=== PATIENT | female | born 1985 | race Caucasian/White ===

== ENCOUNTER 2020-12-21 02:39 | Emergency (ER) | payer MEDICAID ==
[2020-12-21] MEDS ORDERED: Boostrix 0.5 ML (Tdap) VIAL ONE (03:11)
[2020-12-21] MEDS ORDERED: Morphine 4 MG/ML VIAL ONE (03:11)
[2020-12-21] MEDS ORDERED: Ondansetron PF 4 MG/2 ML Vial ONE (03:11)
[2020-12-21] MEDS ORDERED: Clindamycin/D5W 600 mg/50 ml Premix Bag ONE (04:09)
[2020-12-21] MEDS ORDERED: Ibuprofen 800 MG TAB ONE (04:15)
[2020-12-21] MEDS ORDERED: Lidocaine 1% (PF) 30 ML VIAL ONE (04:22)
[2020-12-21] MEDS ORDERED: Triple Antibiotic Oint 1 GM Packet ONE (05:06)
--- NOTE | 2020-12-21 10:47 | RAD ---
RIGHT ELBOW 4 VIEWS: HISTORY: Elbow injury. FINDINGS: There are no signs of fracture, dislocation, or joint effusion. IMPRESSION: Negative right elbow. POS: OFF
--- NOTE | 2020-12-21 10:48 | RAD ---
RIGHT HAND 3 VIEWS: HISTORY: Hand injury. FINDINGS: There are no signs of fracture or dislocation. There are some radiopaque foreign bodies which are pr obably on the skin surface related to an area of laceration adjacent to the 5th metacarpal. IMPRESSION: No fracture. Findings as noted above. POS: OFF
== END 2020-12-21 08:30 | disposition home or self-care (01) ==
LOC: ERS 02:39
DX: S66.322A Laceration of extensor muscle, fascia and tendon of right middle finger at wrist and hand level, initial encounter (principal); S50.01XA Contusion of right elbow, initial encounter; Y04.0XXA Assault by unarmed brawl or fight, initial encounter
CPT/HCPCS: 12002; 90471; 90715; 96365; 96375; J2001; J2270; J2405; J3490

== ENCOUNTER 2020-12-26 12:26 | Day surgery (SDC) | payer SELFPAY ==
[2020-12-25 13:31] VITALS: BMI 23.1
[~2020-12-26 12:26] MED LIST: Dexamethasone 20 MG/5 ML VIAL ONE; Ketorolac Tromethamine 30 MG/ML VIAL ONE; Lidocaine 1% PF 5 ML VIAL ONE; Metoclopramide HCl 10 MG/2 ML VIAL ONE; Ondansetron PF 4 MG/2 ML Vial ONE; PHENYLEPHRINE-NS 100 MCG/ML 10 ML SYRINGE ONE; PROPOFOL 200 MG/20 ML VIAL ONE; ePHEDrine 50 MG/ML VIAL ONE
[2020-12-26 13:50] LABS: SARS-CoV-2 NAA Rapid Test Not Detected (NotDetected)
[2020-12-26] MEDS ORDERED: Midazolam HCl 2 mg/2 ml Vial ONE (14:00)
[2020-12-26] MEDS ORDERED: Scopolamine 1.5 mg/72 hour Patch ONE ×2 (14:00→14:07)
[2020-12-26] MEDS ORDERED: Clindamycin/D5W 900 mg/50 ml Premix Bag ONE (14:05)
[2020-12-26 14:29] LABS: BHCG - Serum Negative (NEGATIVE); Pregs Control Background? CLEAR/WHITE (CLR/WHITE); Pregs Control Bar Appear? YES (CONTROL BAR)
[2020-12-26] MEDS ORDERED: Famotidine/PF 20 mg/2ml Vial ONE (14:35)
[2020-12-26] MEDS ORDERED: Fentanyl 100 MCG/2 ML VIAL ONE (14:35)
[2020-12-26] MEDS ORDERED: Meperidine HCl/PF 25 MG/ML VIAL ONE (14:35)
[2020-12-26] MEDS ORDERED: Lidocaine 1% w/Epinephrine 1:100K 20 ML VIAL ONE (14:38)
[2020-12-26] MEDS ORDERED: Bupivacaine 0.25% HCL 30 ML VIAL ONE (14:38)
[2020-12-26] MEDS ORDERED: Ondansetron PF 4 MG/2 ML Vial ONE (16:12)
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
[2020-12-26] MEDS ORDERED: HYDROcodone/Acetaminophen 5/325 mg Tablet ONE ×2 (16:58→17:21)
== END 2020-12-26 17:55 | disposition home or self-care (01) ==
LOC: SDC 12:26
PROVIDERS: ATTEND Surgery Surgery of the Hand
PROC: 0LQ70ZZ Repair Right Hand Tendon, Open Approach (ICD-10-PCS; principal; 2020-12-26)
DX: S66.322A Laceration of extensor muscle, fascia and tendon of right middle finger at wrist and hand level, initial encounter (principal); S60.551A Superficial foreign body of right hand, initial encounter; G43.909 Migraine, unspecified, not intractable, without status migrainosus; F41.9 Anxiety disorder, unspecified; F32.9 Major depressive disorder, single episode, unspecified; F17.210 Nicotine dependence, cigarettes, uncomplicated; Z88.0 Allergy status to penicillin; W22.8XXA Striking against or struck by other objects, initial encounter
CPT/HCPCS: 84703; J0690; J1100; J1885; J2175; J2250; J2405; J2704; J2765; J3010; J3490; S0020; S0028; U0002